=== PATIENT | female | born 1990 | race Caucasian/White ===

== ENCOUNTER 2016-07-14 13:54 | Emergency (ER) | payer OTHER ==
[2016-07-14 15:08] VITALS: BP 117/63
== END 2016-07-14 15:41 | disposition left against medical advice (07) ==
LOC: ED 13:54
DX: L02.91 Cutaneous abscess, unspecified (principal); Z53.21 Procedure and treatment not carried out due to patient leaving prior to being seen by health care provider

== ENCOUNTER 2017-02-10 00:17 | Inpatient (IN) | payer OTHER ==
[2017-02-10] MEDS ORDERED: Acetaminophen TAB* 325 MG PO PRN (00:19)
[2017-02-10] MEDS ORDERED: Glycerin ADULT SUPP PR PRN (00:19)
[2017-02-10] MEDS ORDERED: Dibucaine 1% 28.35 GM TUBE PR PRN (00:19)
[2017-02-10] MEDS ORDERED: Witch Hazel PAD* JAR TOPICAL PRN (00:19)
[2017-02-10] MEDS ORDERED: Oxytocin in LR* 20 UNITS/1,000 ML BAG IVPB SCH (01:00)
[2017-02-10] MEDS: Ibuprofen TAB* 600 MG PO PRN ×2 (02:28→16:46)
[2017-02-10 03:09] LABS: Benzodiazepine Urine Screen None Detected (None Detect)
[2017-02-10] MEDS ORDERED: Simethicone TAB* 80 MG TAB.CHEW PO SCH (08:30)
[2017-02-10] MEDS ORDERED: Tetan/Diph/Pertus SYR(Tdap)* 0.5 ML SYR(BOOSTRIX) use SYR IM ONE (09:00)
[2017-02-10] MEDS: Docusate CAP* 100 MG PO SCH ×3 (09:25→20:18)
[2017-02-11] MEDS: Ibuprofen TAB* 600 MG PO PRN ×2 (02:17→08:24)
[2017-02-11 07:11] LABS: Hematocrit 34 % (35-47); Hemoglobin 11.2 g/dl (12.0-16.0); Mean Corpuscular HGB Conc 33 g/dl (31-36); Mean Corpuscular Hemoglobin 31 pg (27-31); Mean Corpuscular Volume 93 fL (80-97); Mean Platelet Volume 9 um3 (7.4-10.4); Red Blood Count 3.61 10^6/ul (4.0-5.4); Red Cell Distribution Width 15 % (10.5-15); White Blood Count 16.8 10^3/ul (3.5-10.8)
[2017-02-11] MEDS: Docusate CAP* 100 MG PO SCH ×2 (08:24→14:11)
[2017-02-11] MEDS ORDERED: Ferrous Gluconate TAB* 324 MG TAB PO SCH (09:00)
[2017-02-11 12:04] VITALS: BP 99/62
== END 2017-02-11 17:19 | disposition home or self-care (01) | DRG 561 ==
LOC: MCHOB 00:17
PROVIDERS: ADMIT Obstetrics & Gynecology; ATTEND Obstetrics & Gynecology
DX: Z39.0 Encounter for care and examination of mother immediately after delivery (principal); F17.210 Nicotine dependence, cigarettes, uncomplicated
CPT/HCPCS: 36415; 80307; 85025; 87491; 87591; A9270-GY

== ENCOUNTER → 2017-03-07 12:07 | Emergency (ER) | payer OTHER ==
--- NOTE | 2017-03-07 13:23 | RAD ---
INDICATION: Right hand injury. TECHNIQUE: 4 views of the right hand were obtained. FINDINGS: There is soft tissue swelling dorsal to the metacarpal bones. There is a slightly comminuted mildly impacted fracture of the distal metaphysis of the fifth metacarpal. The distal fragment demonstrate mild anterior dilation relative to the proximal fragment. No other fractures are seen. IMPRESSION: COMMINUTED, SLIGHTLY ANGULATED FRACTURE OF THE DISTAL FIFTH METACARPAL.
--- NOTE | 2017-03-07 14:02 | ED ---
Upper Extremity Pain - HPI Summary HPI Summary: 26F presents with right hand injury three days ago. She was doing laundry when the lid closed on her 3-5th digits of her right hand. She states that the area has remained swollen and bruised for last 3 days. She denies any numbness or tingling. She denies any previous fracture to the area. She has been taking ibuprofen without relief. She describes it as a throbbing pain. She is right handed. She is recent but states that the child is in foster care. - History of Current Complaint Chief Complaint: EDExtremityUpper Stated Complaint: RT HAND INJURY Time Seen by Provider: 03/07/17 13:07 Hx Last Menstrual Period: 2 1/2 week late - Allergies/Home Medications Allergies/Adverse Reactions: Allergies Allergy/AdvReac Type Severity Reaction Status Date / Time No Known Allergies Allergy Verified 02/10/17 00:32 PMH/Surg Hx/FS Hx/Imm Hx Endocrine/Hematology History: Denies: Hx Diabetes, Hx Thyroid Disease Cardiovascular History: Denies: Hx Hypertension Respiratory History: Denies: Hx Asthma, Hx Chronic Obstructive Pulmonary Disease (COPD) GI History: Denies: Hx Ulcer History: Denies: Hx Kidney Infection, Other Problems/Disorders Psychiatric History: Reports: Hx Depression, Hx Community Mental Health Tx, Hx Bipolar Disorder, Other Psychiatric Issues/Disorders - bipolar d/o; no meds currently Denies: Hx Anxiety, Hx Attention Deficit Hyperactivity Disorder, Hx Eating Disorder, Hx Panic Disorder, Hx Post Traumatic Stress Disorder, Hx Inpatient Treatment, Hx Schizophrenia, Hx Suicide Attempt, Hx of Violent Episodes Against Others, Hx Substance Abuse Infectious Disease History: No Infectious Disease History: Denies: Hx Clostridium Difficile, Hx Hepatitis, Hx Human Immunodeficiency Virus (HIV), Hx of Known/Suspected MRSA, Hx Shingles, Hx Tuberculosis, Hx Known/ Suspected VRE, Hx Known/Suspected VRSA, History Other Infectious Disease, Traveled Outside the [place] in Last 30 Days - Family History Known Family History: Positive: None - Social History Alcohol Use: None Substance Use Type: Reports: None Substance Use Comment - Amount & Last Used: Per RN pt admitted to cannabis use early on during Smoking Status (MU): Current Every Day Smoker Type: Cigarettes Amount Used/How Often: 5 cigarettes/day Have You Smoked in the Last Year: Yes Review of Systems Negative: Fever Negative: Chest Pain Negative: Shortness Of Breath Positive: Myalgia - right hand pain All Other Systems Reviewed And Are Negative: Yes Physical Exam Triage Information Reviewed: Yes Vital Signs On Initial Exam: Initial Vitals Temp Pulse Resp BP Pulse Ox 99.6 F 91 20 111/82 100 03/07/17 12:30 03/07/17 12:30 03/07/17 12:30 03/07/17 12:30 03/07/17 12:30 Vital Signs Reviewed: Yes Appearance: Positive: Well-Appearing Skin: Positive: Warm, Dry Head/Face: Positive: Normal Head/Face Inspection Eyes: Positive: Normal, Conjunctiva Clear Respiratory/Lung Sounds: Positive: Clear to Auscultation, Breath Sounds Present Cardiovascular: Positive: Normal, RRR Musculoskeletal: Positive: Limited @ - right 3-5th finger, Other - ecchomysis and edema to 3-5th right metacarpel fracture, tender over 3-5th digit, neg snuff box tenderness, capillary refill<2secs, good pulses, neg snuff box tenderness Neurological: Positive: Normal Psychiatric: Positive: Normal Procedures - Splinting Location: right hand Hand-Made Type: orthoglass Splint: ulnar Pre-Proc Neuro Vasc Exam: normal Post-Proc Neuro Vasc Exam: normal Diagnostics - Vital Signs Vital Signs Temp Pulse Resp BP Pulse Ox 03/07/17 12:30 99.6 F 91 20 111/82 100 - Laboratory Lab Statement: Any lab studies that have been ordered have been reviewed, and results considered in the medical decision making process. - Radiology hand Xray Interpretation: Positive (See Comments) - IMPRESSION: COMMINUTED, SLIGHTLY ANGULATED FRACTURE OF THE DISTAL FIFTH METACARPAL. Radiology Interpretation Completed By: Radiologist Course/Dx - Course Course Of Treatment: 26F presents with right hand injury three days ago. She was doing laundry when the lid closed on her 3-5th digits of her right hand. She states that the area has remained swollen and bruised for last 3 days. She denies any numbness or tingling. She denies any previous fracture to the area. She has been taking ibuprofen without relief. She describes it as a throbbing pain. on exam neurovascular intact, ecchymosis over 3-5th digit. xray shows 5th metacarpel fracture. placed in ulnar gutter splint and will have follow up with ortho. patient understands and agrees with plan. - Diagnoses Differential Diagnosis/HQI/PQRI: Positive: Fracture (Closed), Strain, Sprain Provider Diagnoses: Closed fracture of 5th metacarpal Discharge - Discharge Plan Condition: Good Disposition: HOME Prescriptions: oxyCODONE/Acetamin 5/325 MG* [Percocet 5/325 TAB*] 1 tab PO Q6H PRN #16 tab MDD 4 PRN Reason: Pain Patient Education Materials: Hand Fracture (ED) Referrals: Mao Helm MD [Primary Care Provider] - Carlitos Tomlinson MD [Medical Doctor] - Additional Instructions: Keep splint on area and keep dry Call ortho office tomorrow to set up appointment for follow up Use ibuprofen for pain every 6 hours and use narcotic for breakthrough pain Ice, elevate Return to ED if develop any new or worsening symptoms
[2017-03-07 14:37] VITALS: BP 100/61
== END | disposition home or self-care (01) ==
LOC: ED 12:07
DX: S62.316A Displaced fracture of base of fifth metacarpal bone, right hand, initial encounter for closed fracture (principal); W23.0XXA Caught, crushed, jammed, or pinched between moving objects, initial encounter; Y93.E2 Activity, laundry; Y92.9 Unspecified place or not applicable; F32.9 Major depressive disorder, single episode, unspecified; F17.210 Nicotine dependence, cigarettes, uncomplicated
CPT/HCPCS: 99282

== ENCOUNTER 2017-04-11 20:21 | Emergency (ER) | payer OTHER ==
[2017-04-11 21:12] VITALS: BP 108/68
--- NOTE | 2017-04-11 21:40 | UC ---
Judson Noble Tiffany, scribed for Jon Gleason MD on 04/11/17 at 2100 . Abdominal Pain Female HPI - HPI Summary HPI Summary: This patient is a 26 year old F presenting to [facility] [place] with a chief complaint of cramping periumbilical pain for the last two weeks. The patient rates the pain 6 /10 in severity. Symptoms aggravated by nothing. Symptoms alleviated by nothing. Patient reports shortness of breath, headache, lightheadedness, chills , heavy vaginal bleeding for two weeks straight, rhinorrhea with yellow production, congestion, cough, and ear popping. Patient denies fever. The patient recently gave to her fourth child two months ago and reports no complications. She received a Depo injection two weeks ago, which is when the abdominal pain and vaginal bleeding began. - History of Current Complaint Chief Complaint: UCAbdominalPain Stated Complaint: URI ABDOMINAL PAIN Hx Obtained From: Patient Hx Last Menstrual Period: BEGAN 2 WEEKS AGO Onset/Duration: Lasting Weeks - 2 weeks, Still Present Severity Currently: Moderate Pain Intensity: 6 Pain Scale Used: 0-10 Numeric Location: Other - Periumbilical Character: Cramping Aggravating Factor(s): Nothing Alleviating Factor(s): Nothing Associated Signs and Symptoms: Positive: Other: - shortness of breath, headache , lightheadedness, chills, heavy vaginal bleeding, rhinorrhea with yellow production, congestion, cough, and ear popping; NEGATIVE: fever Allergies/Adverse Reactions: Allergies Allergy/AdvReac Type Severity Reaction Status Date / Time No Known Allergies Allergy Verified 02/10/17 00:32 Home Medications: Home Medications medroxyPROGESTERone ACETATE* [DEPO-Provera] 150 mg IM 04/11/17 [History] PMH/Surg Hx/FS Hx/Imm Hx Previously Healthy: No Other Endocrine History: NEGATIVE: diabetes, thyroid disease Other Cardiovascular History: NEGATIVE: cardiac disorders, hypertension Other Respiratory History: NEGATIVE: COPD, asthma Other GI/ History: NEGATIVE: ulcer - Surgical History Surgical History: None - Family History Known Family History: Positive: Other - Cancer - Social History Alcohol Use: None Substance Use Type: None Substance Use Comment - Amount & Last Used: Per RN pt admitted to cannabis use early on during Smoking Status (MU): Light Every Day Tobacco Smoker Type: Cigarettes Amount Used/How Often: 5 cigarettes/day Have You Smoked in the Last Year: Yes Household Exposure Type: Cigarettes - Immunization History Most Recent Influenza Vaccination: declined Most Recent Tetanus Shot: declined 01/09/2016 Most Recent Pneumonia Vaccination: none Review of Systems Constitutional: Negative - Fever, Chills ENT: Sinus Congestion, Other - Rhinorrhea with yellow production, ear popping Respiratory: Shortness Of Breath, Cough Gastrointestinal: Abdominal Pain Genitourinary: Abnormal Bleeding Neurological: Headache, Other - Lightheadedness All Other Systems Reviewed And Are Negative: Yes Physical Exam Triage Information Reviewed: Yes Vital Signs: Initial Vital Signs Temp 97.2 F 04/11/17 20:33 Pulse 88 04/11/17 20:33 Resp 15 04/11/17 20:33 BP 114/76 04/11/17 20:33 Pulse Ox 99 04/11/17 20:33 Vital Signs Reviewed: Yes - Additional Comments General: no acute pain or distress, she is mildly pale Skin: warm, color reflects adequate perfusion, dry Head: normal Eyes: EOMI, LIBBY ENT: normal Neck: supple, nontender Respiratory: CTA, breath sounds present Cardiovascular: RRR Abdomen: soft, mild tenderness to palpation in lower abdomen Bowel: positive bowel sounds Musculoskeletal: normal, strength/ROM intact Neurological: normal, sensory/motor intact, A&O x3 Psychological: affect/mood appropriate Abd Pain Female Course/Dx - Course Course Of Treatment: Allergies noted. Medications reviewed. DISCUSSED WE ARE UNABLE TO SAFELY EVALUATE HER CONDITION OF PERSISTANT ABNORMAL VAGINAL BLEEDING AND ABDOMINAL PAIN AND RECOMMENDED EVALUATION IN THE EMERGENCY DEPARTMENT RIGHT AWAY. THE PATIENT AGREED TO GO TO THE EMERGENCY DEPARTMENT. I DISCUSSED HER ABNORMAL ORTHOSTATIC VITAL SIGNS AND THE NEED FOR EMERGENCY DEPARTMENT EVALUATION. - Differential Dx/Diagnosis Provider Diagnoses: PERSISTENT ABNORMAL VAGINAL BLEEDING, ABDOMINAL PAIN, URI. Discharge - Discharge Plan Condition: Stable Disposition: HOME Patient Education Materials: Dysfunctional Uterine Bleeding (ED), Upper Respiratory Infection (ED), Acute Abdominal Pain (ED) Referrals: Mao Helm MD [Primary Care Provider] - Additional Instructions: GO DIRECTLY TO THE EMERGENCY DEPARTMENT FOR FURTHER EVALUATION OF YOUR PROLONGED HEAVY VAGINAL BLEEDING AND ABDOMINAL PAIN. WHEN DOING ORTHOSTATIC VITAL SIGNS IN THE CLINIC, YOU HEART RATE BECAME ELEVATED OVER 100 BEATS PER MINUTE INDICATING HYPOVOLEMIA WHICH MAY INDICATE YOU ARE ANEMIC. THIS CAN BE FURTHER EVALUATED IN THE EMERGENCY DEPARTMENT. The documentation as recorded by the Judson braden Tiffany accurately reflects the service I personally performed and the decisions made by me, Jon Gleason MD.
== END 2017-04-11 21:38 | disposition home or self-care (01) ==
LOC: UCEAST 20:21
DX: N93.9 Abnormal uterine and vaginal bleeding, unspecified (principal); J06.9 Acute upper respiratory infection, unspecified; R10.33 Periumbilical pain; Z32.02 Encounter for pregnancy test, result negative; Z72.0 Tobacco use
CPT/HCPCS: 81003; 84702; 99212; G0463

== ENCOUNTER 2017-04-20 15:20 | Emergency (ER) | payer OTHER ==
[2017-04-20 17:35] LABS: Hematocrit 40 % (35-47); Hemoglobin 13.2 g/dl (12.0-16.0); Mean Corpuscular HGB Conc 33 g/dl (31-36); Mean Corpuscular Hemoglobin 31 pg (27-31); Mean Corpuscular Volume 92 fL (80-97); Mean Platelet Volume 9 um3 (7.4-10.4); Red Blood Count 4.32 10^6/ul (4.0-5.4); Red Cell Distribution Width 15 % (10.5-15); White Blood Count 6.1 10^3/ul (3.5-10.8)
[2017-04-20 17:53] LABS: ALT 16 U/L (7-52); AST 16 U/L (13-39); Albumin 4.5 g/dL (3.2-5.2); Alkaline Phosphatase 61 U/L (34-104); Anion Gap 6 mmol/L (2-11); BUN/Creatinine Ratio 14.1 (8-20); Blood Urea Nitrogen 11 mg/dL (6-24); CO2 Carbon Dioxide 24 mmol/L (22-32); Calcium 9.3 mg/dL (8.6-10.3); Chloride 107 mmol/L (101-111); EGFR African American 116.7 (>60); EGFR Non-African American 90.7 (>60); Globulin 2.6 g/dL (2-4); Glucose 84 mg/dL (70-100); Potassium 3.9 mmol/L (3.5-5.0); Sodium 137 mmol/L (133-145); Total Protein 7.1 g/dL (6.4-8.9)
[2017-04-20 20:05] VITALS: BP 100/68
--- NOTE | 2017-04-20 21:42 | ED ---
Elizabet Noble Gabriel, scribed for New Moreno MD on 04/20/17 at 1707 . Abdominal Pain/Female - HPI Summary HPI Summary: This patient is a 26 year old F presenting to [facility] with a chief complaint of ABD pain since a week ago. The patient rates the pain 4/10 in severity. Symptoms alleviated by Tylenol. Patient went to because she has had her period for 3 weeks and was diagnosed with hypovolemia. Patient had her child two months ago and is going through 5 tampons a day. She is currently taking iron pills. - History of Current Complaint Chief Complaint: EDGeneral Stated Complaint: ABD PAIN Time Seen by Provider: 04/20/17 16:45 Hx Obtained From: Patient Hx Last Menstrual Period: BEGAN 3 WEEKS AGO ?: No Onset/Duration: Lasting Weeks - 1, Still Present Timing: Constant Pain Intensity: 4 Pain Scale Used: 0-10 Numeric Alleviating Factor(s): OTC Analgesics Allergies/Adverse Reactions: Allergies Allergy/AdvReac Type Severity Reaction Status Date / Time No Known Allergies Allergy Verified 02/10/17 00:32 PMH/Surg Hx/FS Hx/Imm Hx Previously Healthy: No Endocrine/Hematology History: Denies: Hx Diabetes, Hx Thyroid Disease Cardiovascular History: Denies: Hx Hypertension Respiratory History: Denies: Hx Asthma, Hx Chronic Obstructive Pulmonary Disease (COPD) GI History: Denies: Hx Ulcer History: Denies: Hx Kidney Infection, Other Problems/Disorders Psychiatric History: Reports: Hx Depression, Hx Community Mental Health Tx, Hx Bipolar Disorder, Other Psychiatric Issues/Disorders - bipolar d/o; no meds currently Denies: Hx Anxiety, Hx Attention Deficit Hyperactivity Disorder, Hx Eating Disorder, Hx Panic Disorder, Hx Post Traumatic Stress Disorder, Hx Inpatient Treatment, Hx Schizophrenia, Hx Suicide Attempt, Hx of Violent Episodes Against Others, Hx Substance Abuse Infectious Disease History: No Infectious Disease History: Denies: Hx Clostridium Difficile, Hx Hepatitis, Hx Human Immunodeficiency Virus (HIV), Hx of Known/Suspected MRSA, Hx Shingles, Hx Tuberculosis, Hx Known/ Suspected VRE, Hx Known/Suspected VRSA, History Other Infectious Disease, Traveled Outside the [place] in Last 30 Days - Family History Known Family History: Positive: Other - Cancer - Social History Alcohol Use: None Substance Use Type: Reports: None Substance Use Comment - Amount & Last Used: Per RN pt admitted to cannabis use early on during Smoking Status (MU): Light Every Day Tobacco Smoker Type: Cigarettes Amount Used/How Often: 5 cigarettes/day Have You Smoked in the Last Year: Yes Review of Systems Negative: Fever Positive: Abdominal Pain All Other Systems Reviewed And Are Negative: Yes Physical Exam - Summary Physical Exam Summary: Appearance: The patient is well-nourished in no acute distress and in no acute pain. Skin: The skin is warm and dry and skin color reflects adequate perfusion. HEENT: ~The head is normocephalic and atraumatic. The pupils are equal and reactive. The conjunctivae are clear and without drainage. ~Nares are patent and without drainage. ~Mouth reveals moist mucous membranes and the throat is without erythema and exudate. ~The external ears are intact. The ear canals are patent and without drainage. The tympanic membranes are intact. Neck: the neck is supple with full range of motion and non-tender. There are no carotid bruits. ~There is no neck vein distension. Respiratory: Chest is non-tender. ~Lungs are clear to auscultation and breath sounds are symmetrical and equal. Cardiovascular: Heart is regular rate and rhythm. ~There is no murmur or rub auscultated. ~~There is no peripheral edema and pulses are symmetrical and equal. Abdomen: The abdomen is soft and non-tender. ~There are normal bowel sounds heard in all four quadrants and there is no organomegaly palpated. Musculoskeletal: There is no back tenderness noted. ~Extremities are non-tender with full range of motion. ~There is good capillary refill. ~There is no peripheral edema or calf tenderness elicited. Neurological: Patient is alert and oriented to person, place and time. ~The patient has symmetrical motor strength in all four extremities. ~Cranial nerves are grossly intact. Deep tendon reflexes are symmetrical and equal in all four extremities. Psychiatric: The patient has an appropriate affect and does not exhibit any anxiety or depression. Triage Information Reviewed: Yes Vital Signs On Initial Exam: Initial Vitals Temp Pulse Resp BP Pulse Ox 96.9 F 88 18 107/67 98 04/20/17 15:22 04/20/17 15:22 04/20/17 15:22 04/20/17 15:22 04/20/17 15:22 Vital Signs Reviewed: Yes Diagnostics - Vital Signs Vital Signs Temp Pulse Resp BP Pulse Ox 04/20/17 15:22 96.9 F 88 18 107/67 98 - Laboratory Lab Results: Lab Results 04/20/17 04/20/17 04/20/17 Range/Units 17:17 17:17 17:17 WBC 6.1 (3.5-10.8) 10^3/ul RBC 4.32 (4.0-5.4) 10^6/ul Hgb 13.2 (12.0-16.0) g/dl Hct 40 (35-47) % MCV 92 (80-97) fL MCH 31 (27-31) pg MCHC 33 (31-36) g/dl RDW 15 (10.5-15) % Plt Count 259 (150-450) 10^3/ul MPV 9 (7.4-10.4) um3 Neut % (Auto) 53.5 (38-83) % Lymph % (Auto) 36.5 (25-47) % Ogle % (Auto) 5.7 (1-9) % Eos % (Auto) 3.6 (0-6) % Baso % (Auto) 0.7 (0-2) % Absolute Neuts (auto) 3.3 (1.5-7.7) 10^3/ul Absolute Lymphs (auto) 2.2 (1.0-4.8) 10^3/ul Absolute Monos (auto) 0.3 (0-0.8) 10^3/ul Absolute Eos (auto) 0.2 (0-0.6) 10^3/ul Absolute Basos (auto) 0 (0-0.2) 10^3/ul Absolute Nucleated RBC 0 10^3/ul Nucleated RBC % 0 INR (Anticoag Therapy) 1.09 H (0.77-1.02) Sodium 137 (133-145) mmol/L Potassium 3.9 (3.5-5.0) mmol/L Chloride 107 (101-111) mmol/L Carbon Dioxide 24 (22-32) mmol/L Anion Gap 6 (2-11) mmol/L BUN 11 (6-24) mg/dL Creatinine 0.78 (0.51-0.95) mg/dL Est GFR ( Amer) 116.7 (>60) Est GFR (Non-Af Amer) 90.7 (>60) BUN/Creatinine Ratio 14.1 (8-20) Glucose 84 (70-100) mg/dL Calcium 9.3 (8.6-10.3) mg/dL Total Bilirubin 0.40 (0.2-1.0) mg/dL AST 16 (13-39) U/L ALT 16 (7-52) U/L Alkaline Phosphatase 61 (34-104) U/L Total Protein 7.1 (6.4-8.9) g/dL Albumin 4.5 (3.2-5.2) g/dL Globulin 2.6 (2-4) g/dL Albumin/Globulin Ratio 1.7 (1-3) Beta HCG, Quant < 0.60 mIU/mL Result Diagrams: 04/20/17 17:17 04/20/17 17:17 Lab Statement: Any lab studies that have been ordered have been reviewed, and results considered in the medical decision making process. Abdominal Pain Fem Course/Dx - Course Course Of Treatment: Ms. Allred hasn't lost much blood and this doesn't seem to be related to her 2 months ago as she had gone for about a week without any bleeding before this started. She got a depo shot but may need more management and I will recommend DOCUMENTATION BILLING CLERK F/U. - Diagnoses Provider Diagnoses: Dysfunctional uterine bleeding Discharge - Discharge Plan Condition: Stable Disposition: HOME Patient Education Materials: Dysfunctional Uterine Bleeding (ED) Referrals: Mao Helm MD [Primary Care Provider] - Additional Instructions: Follow up with your OB-DOCUMENTATION BILLING CLERK in three days. RETURN TO THE EMERGENCY DEPARTMENT FOR CHANGING OR WORSENING SYMPTOMS. The documentation as recorded by the Elizabet braden Gabriel accurately reflects the service I personally performed and the decisions made by me, New Moreno MD.
== END 2017-04-20 20:15 | disposition home or self-care (01) ==
LOC: ED 15:20
DX: N93.8 Other specified abnormal uterine and vaginal bleeding (principal); R10.9 Unspecified abdominal pain; F17.210 Nicotine dependence, cigarettes, uncomplicated
CPT/HCPCS: 36415; 80053; 84702; 85025; 85610; 99282

== ENCOUNTER 2018-10-24 09:21 | Emergency (ER) | payer OTHER ==
--- NOTE | 2018-10-24 10:14 | UC ---
Abdominal Pain Female HPI - HPI Summary HPI Summary: 27 yo female presents with 2 complaints; 1) Left wrist pain since last night. She tells me that yesterday she was playing volleyball with her and children. After this she noticed some swelling and bruising to her left wrist. This has improved today, but is still painful and has concerned her. Denies numbness or tingling. Has been applying ice with good relief. 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 She was not trying to become . She does not use any method of control. She tells me that this morning she went to urinate and noticed vaginal bleeding with some quarter sized clots. She has some mild lower abdominal discomfort, but states she has had this with every . Blood type A+. She denies fever, chills, n/v, dysuria. (pt tells me that one was with twins and one twin absorbed the other in the womb). - History of Current Complaint Chief Complaint: UCAbdominalPain Stated Complaint: BLEEDING/WRISTINJURY Time Seen by Provider: 10/24/18 10:05 Hx Obtained From: Patient Hx Last Menstrual Period: 08/07/18 Onset/Duration: Sudden Onset Severity Initially: Mild Severity Currently: Mild Pain Intensity: 2 Pain Scale Used: 0-10 Numeric Allergies/Adverse Reactions: Allergies Allergy/AdvReac Type Severity Reaction Status Date / Time fexofenadine [From Penelope] Allergy Hives Verified 10/24/18 09:31 Home Medications: Home Medications NK [No Home Medications Reported] 10/24/18 [History Confirmed 10/24/18] PMH/Surg Hx/FS Hx/Imm Hx - Additional Past Medical History Additional PMH: None - Surgical History Surgical History: None - Family History Known Family History: Positive: None, Other - Cancer - Social History Lives: With Family Alcohol Use: None Substance Use Type: None Substance Use Comment - Amount & Last Used: Per RN pt admitted to cannabis use early on during Smoking Status (MU): Current Every Day Smoker Type: Cigarettes Amount Used/How Often: 5 cigarettes/day Have You Smoked in the Last Year: Yes Household Exposure Type: Cigarettes - Immunization History Most Recent Influenza Vaccination: declined Most Recent Tetanus Shot: declined 01/09/2016 Most Recent Pneumonia Vaccination: none Review of Systems All Other Systems Reviewed And Are Negative: Yes Constitutional: Positive: Negative Skin: Positive: Negative Respiratory: Positive: Negative Cardiovascular: Positive: Negative Gastrointestinal: Positive: Negative Genitourinary: Positive: Abnormal Bleeding Neurovascular: Positive: Negative Musculoskeletal: Positive: Other: - Left wrist pain Neurological: Positive: Negative Psychological: Positive: Negative Physical Exam - Summary Physical Exam Summary: GENERAL: NAD. WDWN. No pain distress. SKIN: No rashes, sores, lesions, or open wounds. NECK: Supple. Nontender. No lymphadenopathy. CHEST: CTAB. No r/r/w. No accessory muscle use. Breathing comfortably and in no distress. CV: RRR. Without m/r/g. Pulses intact. Cap refill <2seconds ABDOMEN: Soft. NTTP. No distention or guarding. No CVA tenderness. Bowel sounds present MSK: LEFT WRIST: radial aspect with mild ecchymosis and edema. Mild TTP. Decreased flexion due to pain. Good superintendent storage area strength and opposition. No snuffbox tenderness. NEURO: Alert. Sensations intact hand and all fingers. PSYCH: Age appropriate behavior. Triage Information Reviewed: Yes Vital Signs: Initial Vital Signs Temp 98 F 10/24/18 09:28 Pulse 67 10/24/18 09:28 Resp 16 10/24/18 09:28 BP 104/63 10/24/18 09:28 Pulse Ox 100 10/24/18 09:28 Laboratory Tests 10/24/18 09:59 POC Ur Test Positive A Vital Signs Reviewed: Yes Abd Pain Female Course/Dx - Course Course Of Treatment: US: Report: Solitary intrauterine gestational sac measuring 2.7 cm diameter. Solitary pole measuring 1.1 cm crown-rump length. No movement or cardiac activity detected. No yolk sac visualized. No perigestational hemorrhage visualized. Unremarkable 3.4 x 1.3 x 3.4 cm RIGHT ovary and 2.4 x 1.9 x 1.8 cm LEFT ovary. No visualized extra ovarian adnexal region lesions or significant free pelvic fluid. IMPRESSION: #. Given estimated gestational age of 7 weeks 2 days based on the crown-rump length and absence of detectable movement or cardiac activity the appears nonviable. Discussed results with pt. She is emotionally handling the news very well and states that this is what she expected after she noticed bleeding. Will draw for HCG today for baseline level and have her f/u with OBGYN next week. Strongly advised to go to the ED if she develops a fever, pain, or worsening persistent vaginal bleeding. Pt voiced understanding. Regarding her left wrist: Suspect contusion from volleyball. She was placed in a cock-up splint for comfort and advised to RICE and take tylenol for discomfort as directed. F/u if symptoms do not improve within 5-7 days. - Differential Dx/Diagnosis Provider Diagnosis: Nonviable , Contusion of left wrist Discharge - Sign-Out/Discharge Documenting (check all that apply): Patient Departure All imaging exams completed and their final reports reviewed: Yes - Discharge Plan Condition: Stable Disposition: HOME Patient Education Materials: Miscarriage (ED), Contusion in Adults (ED) Referrals: Mao Helm MD [Primary Care Provider] - Sanjeev Cortez MD [Medical Doctor] - 1 Week Additional Instructions: If you develop a fever, shortness of breath, chest pain, new or worsening symptoms - please call your PCP or go to the ED immediately. If you develop heavy vaginal bleeding, fever, or increased abdominal pain - please go to the ER immediately. I recommend that you follow up with OBGYN next week for a recheck. May take tylenol or ibuprofen as directed for discomfort. - Billing Disposition and Condition Condition: STABLE Disposition: Home
[2018-10-24 11:53] VITALS: BP 125/67
== END 2018-10-24 11:50 | disposition home or self-care (01) ==
LOC: UCEAST 09:21
DX: O02.1 Missed abortion (principal); S60.212A Contusion of left wrist, initial encounter; X58.XXXA Exposure to other specified factors, initial encounter; Y93.68 Activity, volleyball (beach) (court); Y92.9 Unspecified place or not applicable; O26.891 Other specified pregnancy related conditions, first trimester; Z3A.01 Less than 8 weeks gestation of pregnancy
CPT/HCPCS: 36415; 76817; 84702; 99213; G0463

== ENCOUNTER 2020-01-18 05:48 | Inpatient (IN) ==
[2020-01-18] MEDS ORDERED: Glycerin ADULT 2.4 gm SUPP PR PRN (06:08)
[2020-01-18] MEDS ORDERED: Oxytocin 10 UNITS/ML 1 ML VIAL IM ONE (06:08)
[2020-01-18] MEDS ORDERED: Dibucaine 1% OINT 28.35 GM TUBE PR PRN (06:08)
[2020-01-18] MEDS ORDERED: Witch Hazel PAD JAR TOPICAL PRN (06:08)
[2020-01-18] MEDS ORDERED: Calcium Carb (TUMS) 500 mg CHEW TAB PO PRN (06:19)
[2020-01-18] MEDS ORDERED: Lactated Ringers 1000 ml BAG 1,000 ML IV SCH (07:00)
[2020-01-18 10:29] LABS: Urine Benzodiazepine Screen None Detected (None Detect); Urine Opiates Screen None Detected (None Detect)
[2020-01-18] MEDS ORDERED: Oxytocin 10 UNITS/ML 1 ML VIAL ONE (16:51)
[2020-01-19 06:53] LABS: ABS Eosinophils 0.3 10^3/ul (0-0.6); ABS Lymphocytes 2.4 10^3/ul (1.0-4.8); ABS Monocytes 0.4 10^3/ul (0-0.8); ABS Neutrophils 10.4 10^3/ul (1.5-7.7); Hematocrit 31 % (35-47); Hemoglobin 10.6 g/dL (12.0-16.0); Mean Corpuscular HGB Conc 35 g/dL (31-36); Mean Corpuscular Hemoglobin 33 pg (27-31); Mean Corpuscular Volume 95 fL (80-97); Mean Platelet Volume 8.1 fL (7.4-10.4); Platelet Count 229 10^3/uL (150-450); Red Blood Count 3.25 10^6 /uL (3.70-4.87); Red Cell Distribution Width 13 % (10-15); White Blood Count 13.6 10^3/uL (3.5-10.8)
[2020-01-20 07:55] VITALS: BP 115/59
== END 2020-01-20 13:25 | disposition home or self-care (01) | DRG 560 ==
LOC: MCHOBOUT 05:48 → MCHOB 05:49
PROVIDERS: ADMIT Midwife; ATTEND Midwife

== ENCOUNTER 2021-10-02 01:15 | Inpatient (IN) ==
[2021-10-02] MEDS ORDERED: Oxytocin in LR 20 UNITS/1,000 ML BAG IVPB ONE (01:41)
[2021-10-02] MEDS ORDERED: Lactated Ringers 1000 ml BAG 1,000 ML IV ONE (01:54)
[2021-10-02] MEDS ORDERED: Buffered Lidocaine 1% SYRIN 1 ml INTRADERM ONE (01:54)
[2021-10-02] MEDS ORDERED: Oxytocin 10 UNITS/ML 1 ML VIAL IM ONE (01:57)
[2021-10-02] MEDS ORDERED: Witch Hazel PAD JAR TOPICAL PRN (01:57)
[2021-10-02] MEDS ORDERED: Dibucaine 1% OINT 28.35 GM TUBE PR PRN (01:57)
[2021-10-02] MEDS ORDERED: Lactated Ringers 1000 ml BAG 1,000 ML IV SCH (02:00)
[2021-10-02 02:14] LABS: ABS Basophils 0.1 10^3/ul (0-0.2); ABS Eosinophils 0.2 10^3/ul (0-0.6); ABS Lymphocytes 3.5 10^3/ul (1.0-4.8); ABS Monocytes 0.7 10^3/ul (0-0.8); ABS Neutrophils 9.7 10^3/ul (1.5-7.7); Eosinophil % 1.1 %; Hematocrit 36 % (35-47); Hemoglobin 11.6 g/dL (12.0-16.0); Lymphocyte % 24.8 %; Mean Corpuscular HGB Conc 33 g/dL (31-36); Mean Corpuscular Hemoglobin 31 pg (27-31); Mean Corpuscular Volume 95 fL (80-97); Platelet Count 310 10^3/uL (150-450); Red Blood Count 3.76 10^6 /uL (3.70-4.87); Red Cell Distribution Width 14 % (10-15); White Blood Count 14.2 10^3/uL (3.5-10.8)
[2021-10-02] MEDS ORDERED: Oxytocin 10 UNITS/ML 1 ML VIAL ONE (02:24)
[2021-10-02 05:18] LABS: Urine Benzodiazepine Screen None Detected (None Detect); Urine Cannabinoids Screen Presumptive Positive (None Detect); Urine Opiates Screen None Detected (None Detect)
[2021-10-03 06:43] LABS: ABS Eosinophils 0.1 10^3/ul (0-0.6); ABS Monocytes 0.2 10^3/ul (0-0.8); ABS Neutrophils 7.9 10^3/ul (1.5-7.7); Eosinophil % 0.8 %; Hematocrit 37 % (35-47); Hemoglobin 12.6 g/dL (12.0-16.0); Lymphocyte % 19.8 %; Mean Corpuscular HGB Conc 34 g/dL (31-36); Mean Corpuscular Hemoglobin 32 pg (27-31); Mean Corpuscular Volume 95 fL (80-97); Mean Platelet Volume 8.8 fL (7.4-10.4); Platelet Count 302 10^3/uL (150-450); Red Blood Count 3.95 10^6 /uL (3.70-4.87); Red Cell Distribution Width 14 % (10-15); White Blood Count 10.2 10^3/uL (3.5-10.8)
[2021-10-03 09:06] VITALS: BP 116/59
== END 2021-10-03 15:40 | disposition home or self-care (01) | DRG 560 ==
LOC: MCHOBOUT 01:15 → MCHOB 01:43
PROVIDERS: ADMIT Midwife; ATTEND Midwife